=== PATIENT | male | born 1965 | race Caucasian/White ===

== ENCOUNTER → 2017-12-07 | Outpatient (CLI) | payer BC ==
[~2017-12-07] MED LIST: AC325T PO; ATOR10TA PO; ATR20T; CLCX100C PO; CLCX200C PO; DIAZ-345 PO; DULO60CA6 PO; ENXP40I.4 SQ; EZET1TAB44 PO; HYDR-3583 PO; HYDR-3720 PO; HYDR1CAP2; IBP800T PO; LANS30CA PO; LISI20TA; LISI20TA PO; LOSA50TA2 PO; METH4TAB PO; PNT40TEC PO; PRD20T PO; RABE20TA PO; SENN1TAB76 PO
--- NOTE | 2017-12-07 17:40 | Diagnostic Imaging Report ---
INDICATION: Pain after bending over, pain in the back and tailbone region for a week. EXAMINATION: Sacroiliac joints 12/07/2017. COMPARISON: Correlation made to previous pelvic films from 08/01/2013. FINDINGS: Three views of the sacroiliac joints demonstrate five screws through the right ilium. Portions of the proximal screws not included on two of the images. Visualized aspects of the orthopedic hardware appear intact. There are no acute osseous fractures. The right SI joint appears patent. The left SI joint is also patent. Previously noted right ilial fractures appear healed with sclerosis along the right ilium. Multiple coils noted in the left pelvis. IMPRESSION: 1. Uncomplicated postoperative change along its visualized aspects incompletely imaged on two views. 2. Old healed fracture right ilium. No acute process appreciated. Dictated by: Dictated on workstation # [id number]
--- NOTE | 2017-12-07 17:50 | Diagnostic Imaging Report ---
INDICATION: Bent over to pet a dog and feels severe low back pain and tailbone pain for a week. EXAMINATION: Lumbar spine dated 12/07/2017. COMPARISON: 07/23/2013. FINDINGS: There is normal height and alignment of the vertebral bodies. Facet hypertrophy is seen predominantly at L4-L5 and L5-S1. There is minimal intervertebral disc space narrowing at the L4-L5 and L5-S1 levels. Remaining disc spaces are fairly well preserved. Postoperative change superimposed upon the spine is seen within the right SI joint and visualized ilium new since the previous examination. There are clips in the right upper quadrant. There are coils in the left lower pelvis. IMPRESSION: 1. Moderate degenerative findings in the lower lumbar region with no superimposed acute abnormality appreciated. Incidental postoperative changes as discussed above. Dictated by: Dictated on workstation # [id number]
== END ==
LOC: RAD 16:59
PROVIDERS: ATTEND Nurse Practitioner Family
DX: M89.38 Hypertrophy of bone, other site (principal); X50.1XXA Overexertion from prolonged static or awkward postures, initial encounter; Z87.81 Personal history of (healed) traumatic fracture; Z98.890 Other specified postprocedural states
CPT/HCPCS: 72100; 72202

== ENCOUNTER → 2023-01-14 | Outpatient (CLI) | payer BC ==
--- NOTE | 2023-01-14 09:49 | Diagnostic Imaging Report ---
INDICATION: LEFT-SIDED TESTICULAR MASS N50.89 TECHNIQUE: Real-time grayscale sonographic imaging and color vascular evaluation of the scrotum. CORRELATION STUDY: None FINDINGS: RIGHT TESTICLE: 4 x 2.2 x 2.5 cm. LEFT TESTICLE: 3.1 x 2.3 x 2.9 cm. The testicles are in normal location and demonstrate homogeneous echotexture. There is vascular flow to the testicles. Inferior aspect left testicle, and likely associated with the epididymal tail is abnormal, extratesticular heterogeneous region. This measures approximately 2.2 x 1.8 x 1.1 cm and demonstrates vascular blood flow. Right epididymis unremarkable. No significant hydrocele and/or varicoceles. IMPRESSION: 1. Abnormal masslike area of vascularity at the left epididymal tail. Most could potentially reflect area of epididymitis, possibly neoplasm is in the differential. Clinical correlation recommended. Potential for urological consultation along with close clinical and short-term follow-up imaging would be recommended. Dictated by: Dictated on workstation # [id number]
== END ==
LOC: RAD 08:26
PROVIDERS: ATTEND Family Medicine
DX: N50.89 Other specified disorders of the male genital organs (principal)
CPT/HCPCS: 76870